=== PATIENT | male | born 2000 | race African-American/Black ===

== ENCOUNTER 2022-12-27 22:51 | Emergency (ER) | payer MEDICAID, SELFPAY ==
[2022-12-27] MEDS ORDERED: Mag-Al Plus 1200 MG/1200 MG/120 MG/30 ML UDCUP ONE (23:46)
[2022-12-27 23:51] LABS: #Eosinphils 0.2 10x3/uL (0.0-0.5); #Neutrophils 4.8 10x3/uL (1.5-8.4); %Basophils 0.5 % (0.0-2.0); %Eosinophils 2.5 % (0.0-6.0); %Monocytes 12.2 % (0.0-10.0); %Neutrophils 60.5 % (40.0-75.0); Hematocrit 32.2 % (38.8-50.0); Hemoglobin 9.7 g/dL (13.5-17.5); Mean Corpuscular HGB CONC 30.1 g/dL (32.0-36.0); Mean Corpuscular Hemoglobin 21.9 pg (27.0-33.0); Mean Corpuscular Volume 72.7 fl (81.2-95.1); Platelet Count 330 10x3/uL (150-450); RBC Distribution Width 16.4 % (11.5-14.5); Red Blood Cell (RBC) Count 4.43 10x6/uL (4.32-5.72)
[2022-12-28 00:05] LABS: ALT (SGPT) 31 U/L (8-55); AST (SGOT) 17 U/L (5-34); Albumin 4.2 g/dL (3.5-5.0); Alkaline Phosphatase 84 U/L (50-130); Anion Gap 14 mmol/L (10-20); BUN (Urea Nitrogen) 13 mg/dL (8.9-20.6); Bilirubin, Total 0.2 mg/dL (0.2-1.2); Calc. Creatinine Clearance 0 mL/min (70-130); Calcium 8.7 mg/dL (7.8-10.44); Carbon Dioxide 24 mmol/L (22-29); Chloride 105 mmol/L (98-107); Estimated GFR 109; Globulin 2.7 g/dL (2.4-3.5); Glucose 113 mg/dL (70-105); Lipase 20 U/L (8-78); Potassium 3.4 mmol/L (3.5-5.1); Protein, Total 6.9 g/dL (6.0-8.3); Sodium 140 mmol/L (136-145)
[2022-12-28] MEDS ORDERED: HYDROcodone/Acetaminophen 5/325 mg Tablet ONE (01:17)
[2022-12-28 03:31] LABS: Microcytosis SLIGHT = 6-15 cells (100X) (0-5/hpf)
== END 2022-12-28 01:25 | disposition home or self-care (01) ==
LOC: CSHERS 22:51
DX: R10.13 Epigastric pain (principal)
CPT/HCPCS: 36415; 80053; 83690; 85025; 99284